=== PATIENT | female | born 1980 | race Caucasian/White ===

== ENCOUNTER 2019-05-31 21:36 | Emergency (ER) | payer OTHER ==
--- NOTE | 2019-06-01 03:24 | ED ---
Skin Complaint - HPI Summary HPI Summary: Patient is a 39 y/o F presenting to [facility] with complaints of right breast pain and green discharge from the right nipple. Discharge was noted around 2124. She states that the discharge came out on its own and that she did not need to squeeze out the discharge. Pain at the right breast area subsequently onset. On triage, pain is rated 7/10. Patient denies recent illnesses, fever, N/V/D. No similar prior episodes are noted. PMHx of HTN, migraines, depression noted. Patient is on suboxone. Penicillin, gabapentin, and furosemide allergy are noted. PSHx of tubal ligation reported. Patient has six children. She did not breastfeed. She is a current smoker. Home medications and allergies are reviewed. - History of Current Complaint Chief Complaint: EDGeneral Time Seen by Provider: 06/01/19 02:56 Stated Complaint: DRAINAGE FROM RT BREAST PER PT Hx Obtained From: Patient Hx Last Menstrual Period: 03/25/15 Onset/Duration: Started Hours Ago, Still Present Skin Exposure Onset/Duration: Hours Ago Timing: Lasting Hours Current Severity: Severe Pain Intensity: 7 Pain Scale Used: 0-10 Numeric Skin Location: Other: - right breast Character: Pain, Painful Associated Signs & Symptoms: Drainage - discharge from right breast - Allergy/Home Medications Allergies/Adverse Reactions: Allergies Allergy/AdvReac Type Severity Reaction Status Date / Time furosemide Allergy Hives Verified 06/01/19 03:18 gabapentin Allergy Headache Verified 06/01/19 03:18 Penicillins Allergy Swelling Verified 06/01/19 03:18 Of Face,Lips,& Throat Home Medications: Home Medications Buprenorphine HCl/Naloxone HCl [Buprenorp-Nalox 8-2 mg Sl Film] 1 film SL BID [History Confirmed 06/01/19] Gabapentin 300 - 600 mg PO SEE INSTRUCTIONS 06/01/19 [History Confirmed 06/01/19 ] PMH/Surg Hx/FS Hx/Imm Hx Cardiovascular History: Reports: Hx Hypertension Neurological History: Reports: Other Neuro Impairments/Disorders - MIGRAINES Psychiatric History: Reports: Hx Depression - Surgical History Surgery Procedure, Year, and Place: TUBAL LIGATION Infectious Disease History: No Infectious Disease History: Denies: Traveled Outside the [place] in Last 30 Days - Family History Known Family History: Positive: Diabetes - Social History Alcohol Use: None Substance Use Type: Reports: None Smoking Status (MU): Current Every Day Smoker Type: Cigarettes Amount Used/How Often: 1/2 PPD Have You Smoked in the Last Year: Yes - Additional Comments History Additional Comments: PMHx of HTN, migraines, depression noted. PSHx of tubal ligation. Review of Systems - ROS Summary Review of Systems Summary: Home Medications Medication Instructions Recorded Confirmed Type Multivitamin [Multivitamins] 1 cap PO DAILY 11/15/12 04/09/15 History Buprenorphine HCl/Naloxone HCl 1 film SL BID 06/01/19 06/01/19 History [Buprenorp-Nalox 8-2 mg Sl Film] Gabapentin 300 - 600 mg PO SEE INSTRUCTIONS 06/01/19 06/01/19 History Negative: Fever Negative: Vomiting, Diarrhea, Nausea Skin: Other - positive - discharge from right nipple, pain to right nipple All Other Systems Reviewed And Are Negative: Yes Physical Exam - Summary Physical Exam Summary: General: Well-developed, Obese female. No acute distress. HEENT: Normocephalic, Atraumatic. Eyes: Conjuctiva normal, PERRL. Oropharynx: Clear, mucous membranes moist, (-) exudates. Neck: Soft, FROM, (-) lymphadenopathy, (-) thyromegaly, (-) JVD. Cardiovascular: Normal sinus rhythm, (-) murmur. Lungs: Clear to auscultation bilaterally (-) wheezes, (-) rales, (-) rhonchi. Abdomen: Soft, non-tender, non-distended, (-) organomegaly, normal bowel sounds. Back: (-) CVA tenderness Extremities: No edema. Skin: Mild tenderness to the lateral upper area of the right breast. No masses palpated. No obvious drainage, irritation, or erythema of the right nipple. Warm , dry, (-) rash. Neuro: Alert and oriented x3, moves all extremities equally. No ataxia. No gait disturbance. No sensory deficit. Normal strength, normal sensation. Psychiatric: Mood normal, affect normal. Triage Information Reviewed: Yes Vital Signs On Initial Exam: Initial Vitals Temp Pulse Resp BP Pulse Ox 97.5 F 73 15 147/104 98 05/31/19 21:47 05/31/19 21:47 05/31/19 21:47 05/31/19 21:47 05/31/19 21:47 Vital Signs Reviewed: Yes Procedures - Sedation Patient Received Moderate/Deep Sedation with Procedure: No Diagnostics - Vital Signs Vital Signs Temp Pulse Resp BP Pulse Ox 06/01/19 01:12 97.6 F 62 16 128/76 100 05/31/19 21:47 97.5 F 73 15 147/104 98 - Laboratory Result Diagrams: 06/01/19 03:21 06/01/19 03:21 Lab Statement: Any lab studies that have been ordered have been reviewed, and results considered in the medical decision making process. Course/Dx - Course Course Of Treatment: 39 year old female presents with greenish discharge from right nipple. denies any manipulation prior to discharge. no hisotry of this. no trauma. no s/s of acute illness. on exam there is no obvious discharge even with compresion. no obvious masses, tenderness, redness. workup negative, including white count, negative, prolactin normal. discussed with patient at length. advised follow up with PCP for ultrasound and mammogram. follow up sooner for any worsening symptoms - Diagnoses Provider Diagnoses: Discharge from right nipple Discharge ED - Sign-Out/Discharge Documenting (check all that apply): Patient Departure - discharge - Discharge Plan Condition: Stable Disposition: HOME Patient Education Materials: Nipple Discharge (ED) Referrals: Elaine Kang MD [Primary Care Provider] - 3 Days Additional Instructions: PLEASE RETURN TO ED FOR ANY NEW OR WORSENING SYMPTOMS. PLEASE FOLLOW UP WITH YOUR PRIMARY CARE PHYSICIAN WITHIN THREE DAYS. - Billing Disposition and Condition Condition: STABLE Disposition: Home - Attestation Statements Document Initiated by Osmani: Yes Documenting Scribe: ALANNAH MAURICIO Provider For Whom Osmani is Documenting (Include Credential): ADRIENNE MURILLO MD Scribe Attestation: ALANNAH Lam, scribed for ADRIENNE MURILLO MD on 06/04/19 at 1957. Scribe Documentation Reviewed: Yes Provider Attestation: The documentation as recorded by the ALANNAH figueroa accurately reflects the service I personally performed and the decisions made by me, ADRIENNE MURILLO MD Status of Scribe Document: Viewed
[2019-06-01 03:31] LABS: ABS Basophils 0.1 10^3/ul (0-0.2); ABS Eosinophils 0.4 10^3/ul (0-0.6); ABS Lymphocytes 1.9 10^3/ul (1.0-4.8); ABS Monocytes 0.3 10^3/ul (0-0.8); Eosinophil % 4.9 %; Hematocrit 34 % (35-47); Hemoglobin 11.1 g/dL (12.0-16.0); Mean Corpuscular HGB Conc 32 g/dL (31-36); Mean Corpuscular Hemoglobin 27 pg (27-31); Mean Corpuscular Volume 84 fL (80-97); Mean Platelet Volume 9.1 fL (7.4-10.4); Nucleated Red Blood Cells % 0.1; Platelet Count 170 10^3/uL (150-450); Red Blood Count 4.07 10^6 /uL (3.70-4.87); Red Cell Distribution Width 19 % (10-15); White Blood Count 7.7 10^3/uL (3.5-10.8)
[2019-06-01 03:36] LABS: INR 0.92 (0.82-1.09)
[2019-06-01 03:40] LABS: Albumin 4.2 g/dL (3.2-5.2); Calcium 8.9 mg/dL (8.6-10.3); Potassium 3.8 mmol/L (3.5-5.0); Total Bilirubin 0.4 mg/dL (0.2-1.0)
[2019-06-01 03:46] LABS: Albumin/Globulin Ratio 1.5 (1-3); BUN/Creatinine Ratio 11.8 (8-20); EGFR African American 101.5 (>60); EGFR Non-African American 83.9 (>60); Globulin 2.8 g/dL (2-4)
[2019-06-01 04:09] LABS: HCG Pregnancy 0.7 mIU/mL
[2019-06-01 05:01] VITALS: BP 145/81
== END 2019-06-01 05:00 | disposition home or self-care (01) ==
LOC: ED 21:36
DX: N64.52 Nipple discharge (principal); N64.4 Mastodynia; F32.9 Major depressive disorder, single episode, unspecified; I10 Essential (primary) hypertension; Z88.9 Allergy status to unspecified drugs, medicaments and biological substances; Z88.0 Allergy status to penicillin; Z98.51 Tubal ligation status; F17.210 Nicotine dependence, cigarettes, uncomplicated
CPT/HCPCS: 36415; 80053; 83605; 84146; 84702; 85025; 85610; 99282